=== PATIENT | male | born 2000 | race African-American/Black ===

== ENCOUNTER 2022-02-17 03:04 | Emergency (ER) | payer SELFPAY ==
[2022-02-17] MEDS ORDERED: Boostrix 0.5 ML (Tdap) VIAL ONE (03:08)
[2022-02-17] MEDS ORDERED: CEFAZOLIN 1 GM VIAL ONE (03:08)
[2022-02-17 03:26] LABS: #Basophils 0.1 thou/uL (0.0-0.2); #Eosinphils 0.2 thou/uL (0.0-0.7); #Lymphocytes 3.9 thou/uL (1.20-3.40); #Neutrophils 6.3 thou/uL (1.40-6.50); %Eosinophils 1.4 % (0.0-10.0); %Monocytes 8.7 % (0.0-10.0); %Neutrophils 54.9 % (42.0-75.0); Hemoglobin 14.4 g/dL (14.0-18.0); Mean Corpuscular HGB CONC 33.5 g/dL (32.0-36.0); Mean Corpuscular Volume 98.5 fL (78.0-98.0); Mean Platelet Volume 9.6 fL (7.4-10.4); Platelet Count 144 thou/uL (130-400); RBC Distribution Width 11.9 % (11.5-14.5); Red Blood Cell (RBC) Count 4.36 mill/uL (4.70-6.10); White Blood Cell (WBC) Count 11.4 thou/uL (4.8-10.8)
[2022-02-17 03:41] LABS: Prothrombin Time 12.9 sec (12.0-14.7)
[2022-02-17 03:42] LABS: PTT 26.3 sec (22.9-36.1)
[2022-02-17 03:44] LABS: Anion Gap 16 mmol/L (10-20); BUN (Urea Nitrogen) 9 mg/dL (8.9-20.6); Calc. Creatinine Clearance 0 mL/min (70-130); Carbon Dioxide 20 mmol/L (22-29); Chloride 105 mmol/L (98-107); Potassium 3.1 mmol/L (3.5-5.1); Sodium 138 mmol/L (136-145)
[2022-02-17 03:45] LABS: ALT (SGPT) 28 U/L (8-55); AST (SGOT) 28 U/L (5-34); Alkaline Phosphatase 100 U/L (40-110); Bilirubin, Total 0.4 mg/dL (0.2-1.2); Calcium 8.9 mg/dL (7.8-10.44); Estimated GFR 79; Globulin 2.8 g/dL (2.4-3.5); Glucose 98 mg/dL (70-105); Protein, Total 6.8 g/dL (6.0-8.3)
[2022-02-17] MEDS ORDERED: Lidocaine 1% PF 5 ML VIAL ONE (04:26)
[2022-02-17] MEDS ORDERED: Bacitracin 1 PK ONE (05:22)
== END 2022-02-17 05:46 | disposition home or self-care (01) ==
LOC: ERS 03:04 → EDSEX 03:04 → ERS 05:46
DX: S21.112A Laceration without foreign body of left front wall of thorax without penetration into thoracic cavity, initial encounter (principal); Z23 Encounter for immunization; W26.0XXA Contact with knife, initial encounter
CPT/HCPCS: 12002; 36415; 71045; 80053; 83605; 85025; 85610; 85730; 86850; 86900; 86901; 90471; 90715; 96374; G0390; J0690